=== PATIENT | female | born 1930 | race Caucasian/White ===

== ENCOUNTER → 2016-08-14 | Outpatient (CLI) | payer MEDICARE, MEDICAID ==
[~2016-08-14] MED LIST: ASPI-558 PO; ATEN-36 PO; ATOR10TA20 PO; CALC-775 PO; DONE10TA21 PO; FISH1CAP29 PO; IBUP200C42 PO; LEVO100T85 PO; POLY17PO3 PO; PROM-51 PO; [UNRECOGNIZED DRUG - CODE] IJ
[2016-08-14 07:10] LABS: ANION GAP 11 MEQ/L (5-15); BUN/CREATININE RATIO 16 RATIO (6-26); CALCIUM 8.8 MG/DL (8.4-10.2); CHLORIDE 108 MEQ/L (98-107); CO2 - CARBON DIOXIDE 25 MEQ/L (22-30); CREATININE 0.9 MG/DL (0.7-1.2); GLOMERULAR FILTRATION RATE 59; GLUCOSE 92 MG/DL (65-110); SODIUM 144 MEQ/L (134-144)
== END ==
LOC: LABNH.PM 00:55
PROVIDERS: ATTEND Family Medicine
DX: I10 Essential (primary) hypertension (principal)
CPT/HCPCS: 36415; 80048; P9604